=== PATIENT | female | born 1990 ===

== ENCOUNTER 2017-04-13 00:49 | Emergency (ER) | payer MEDICAID ==
[2017-04-13] MEDS ORDERED: Sodium Chloride 0.9% 1,000 ML IV STA (01:23)
--- NOTE | 2017-04-13 01:27 | ED PDOC ---
HPI: Psych/Substance Abuse Time Seen by Provider: 04/13/17 01:01 Chief Complaint (Nursing): Substance Abuse Chief Complaint (Provider): substance abuse History Per: Patient, Other (friend) History/Exam Limitations: no limitations Onset/Duration Of Symptoms: Hrs Additional Complaint(s): 26 y/o female brought in with friend for evaluation of substance abuse. Patient states she attempted to smoke marijuana oil but the pen was broken so she decided to put the oil directly on her tongue. Patient states approximately an hour later her whole body began to feel "numb", with associated racing heart. Patient thinks she is "too high". Denies headache, dizziness, extremity numbness/weakness, chest pain, shortness of breath, nausea/ vomiting. Past Medical History Reviewed: Historical Data, Nursing Documentation, Vital Signs Vital Signs: Last Vital Signs Temp 97.9 F 04/13/17 00:59 Pulse 108 H 04/13/17 00:59 Resp 20 04/13/17 00:59 BP 162/88 H 04/13/17 00:59 Pulse Ox 99 04/13/17 00:59 - Medical History PMH: No Chronic Diseases - Surgical History Surgical History: No Surg Hx - Family History Family History: States: No Known Family Hx - Allergies Allergies/Adverse Reactions: Allergies Allergy/AdvReac Type Severity Reaction Status Date / Time No Known Allergies Allergy Verified 04/13/17 01:10 Review of Systems ROS Statement: Except As Marked, All Systems Reviewed And Found Negative Cardiovascular: Positive for: Palpitations Physical Exam - Reviewed Nursing Documentation Reviewed: Yes Vital Signs Reviewed: Yes - Physical Exam Appears: Positive for: Well, Non-toxic, Uncomfortable (anxious) Head Exam: Positive for: ATRAUMATIC, NORMAL INSPECTION, NORMOCEPHALIC Skin: Positive for: Normal Color Eye Exam: Positive for: Normal appearance ENT: Positive for: Normal ENT Inspection Cardiovascular/Chest: Positive for: Regular Rate, Rhythm Respiratory: Positive for: Normal Breath Sounds Gastrointestinal/Abdominal: Positive for: Normal Exam Back: Positive for: Normal Inspection Extremity: Positive for: Normal ROM Neurologic/Psych: Positive for: Alert, Oriented - ECG ECG: Positive for: Viewed By Me (reviewed by ED attending) ECG Rhythm: Positive for: Sinus Tachycardia (124bpm) O2 Sat by Pulse Oximetry: 99 - Progress ED Course And Treament: ekg, IV fluids, IV ativan 3:00 Patient sleeping; no distress. Vitals stable on monitor 4:30 Patient sleeping; no distress. Vitals stable on monitor 6:00 Patient awake, alert, oriented x3. States she is feeling better. Stable for discharge. Return precautions given. Disposition - Clinical Impression Clinical Impression: Substance abuse - Disposition Disposition: Routine/Home Disposition Time: 05:57 Condition: IMPROVED Instructions: Cannabis Abuse (ED)
[2017-04-13 06:05] VITALS: BP 129/77; PULSE 88; RESP 17; TEMP 98.5; O2SAT 98
--- NOTE | 2017-04-13 08:42 | CARD ---
APPROVED REPORT EKG Measurement Heart [id number] ME [id number] [id number] <Conclusion> Sinus tachycardia Otherwise normal ECG
== END 2017-04-13 06:06 | disposition home or self-care (01) ==
LOC: H.ER 00:49
DX: F12.90 Cannabis use, unspecified, uncomplicated (principal)
CPT/HCPCS: 81025; 93005; 96374; 99283; J2060; J7040